=== PATIENT | female | born 1965 ===

== ENCOUNTER 2019-03-24 08:15 | Inpatient (IN) | payer OTHER ==
[~2019-03-24] VITALS: Ht 160 cm; Wt 90.7 kg
[2019-03-24] MEDS ORDERED: SYNTHROID150 MCG PO (09:37)
[2019-03-24] MEDS ORDERED: ATACAND HCT 161 EACH PO (09:37)
== END 2019-04-01 15:30 | disposition home or self-care (01) | DRG 742 ==
LOC: SURG 03-29 08:15 → NICU 03-29 08:15 → O/R 03-29 08:15 → OB/GYN 03-29 09:54 → SURG 03-29 13:30 → OB/GYN 03-29 18:20
PROVIDERS: ADMIT Obstetrics & Gynecology
PROC: 0UT50ZZ Resection of Right Fallopian Tube, Open Approach (ICD-10-PCS; 2019-03-29)
PROC: 0UT90ZZ Resection of Uterus, Open Approach (ICD-10-PCS; principal; 2019-03-29 13:30)
DX: D25.2 Subserosal leiomyoma of uterus (principal); D62 Acute posthemorrhagic anemia; N72 Inflammatory disease of cervix uteri; N95.0 Postmenopausal bleeding